=== PATIENT | female | born 1960 | race Caucasian/White ===

== ENCOUNTER 2016-10-31 06:09 | Inpatient (IN) | payer BC ==
--- NOTE | 2016-10-25 14:08 | HP ---
Admitting History and Physical - Primary Care Physician PCP: william - Admission Chief Complaint: left breast cancer History of Present Illness: 56 yo female noted to have left breast calcifications on mammogram. Left stereo bx of this area done 09/03/2016 was c/w DCIS. MRI done 10/14/2016 was c/w fairly extensive enhancement again in the lower inner aspect of the left breast extending over at least 5 cm. Patient is now opting for left mastectomy, snbx, lympho, possible andx with SCOTT reconstruction. History Source: Patient Limitations to Obtaining History: No Limitations - Past Medical History Cardiovascular: Yes: Hyperlipdemia Endocrine: Yes: Other (vitamin D Deficiency) - Past Surgical History Past Surgical History: Yes: Additional Past Surgical History: removal of ectopic - Smoking History Smoking history: Former smoker Have you smoked in the past 12 months: No - Alcohol/Substance Use Hx Alcohol Use: Yes (social) Home Medications - Allergies Allergies/Adverse Reactions: Allergies Allergy/AdvReac Type Severity Reaction Status Date / Time No Known Allergies Allergy Unverified 11/27/12 10:30 - Home Medications Home Medications (free text): Crestor. Vitamin D3 Family Disease History - Family Disease History Family Disease History: CA: Grandparent (paternal GM 70's breast ca), Sister ( bilateral breast cancer age 53) Review of Systems - Review of Systems Constitutional: reports: No Symptoms Cardiovascular: reports: No Symptoms Gastrointestinal: reports: No Symptoms Physical Examination Constitutional: Yes: Well Nourished Breast(s): Yes: Other (Left breast bx changes noted in the lower inner aspect. No suspicious masses or adenopathy noted bilaterally.) Problem List - Problems (1) Ductal carcinoma of left breast Code(s): C50.912 - MALIGNANT NEOPLASM OF UNSPECIFIED SITE OF LEFT FEMALE BREAST Assessment/Plan Plan left mastectomy, snbx, poss andx with lymphoscintogram and SCOTT reconstruction.
[2016-10-30 12:59] VITALS: BMI 27.5
[2016-10-31] MEDS ORDERED: PAPAVERINE HCL 30 MG/1 ML 10 ML VIAL NR ONE (07:02)
[2016-10-31] MEDS ORDERED: ISOSULFAN BLUE 10 MG/ML VIAL SQ ONE (07:02)
[2016-10-31] MEDS ORDERED: DEXAMETHASONE SOD PHOSPHATE/PF 10 MG/ML SDV ONE (07:02)
[2016-10-31] MEDS ORDERED: HEPARIN NA (PORCINE) 5,000 UNITS/ML 1ML VIAL ONE (07:03)
[2016-10-31] MEDS ORDERED: DESFLURANE GAS 240 ML BOTTLE IH ONE (07:55)
[2016-10-31] MEDS ORDERED: ceFAZolin SODIUM 1 GM VIAL IVPB ONE ×2 (08:30→08:44)
[2016-10-31] MEDS ORDERED: HEPARIN NA (PORCINE) 5,000 UNITS/ML 1ML VIAL SQ ONE (08:33)
[2016-10-31] MEDS ORDERED: [UNRECOGNIZED DRUG - OTHER] NR ONE (09:30)
[2016-10-31] MEDS ORDERED: BUPIVACAINE HCL/PF 0.25% (2.5MG/ML) 10 ML VIAL ONE (11:28)
[2016-10-31] MEDS ORDERED: ONDANSETRON 4 MG/2 ML VIAL IVPUSH PRN ×2 (14:11→14:12)
[2016-10-31] MEDS ORDERED: HYDROmorphone HCL CARPU-JECT 1 MG/1 ML DISP.SYRIN IVPUSH PRN (14:11)
[2016-10-31] MEDS ORDERED: PROMETHAZINE HCL 25 MG/1 ML VIAL IVPB PRN (14:12)
[2016-10-31] MEDS ORDERED: DEXAMETHASONE SOD PHOSPHATE 4 MG/1 ML VIAL IVPUSH PRN (14:12)
[2016-10-31] MEDS ORDERED: HYDROmorphone HCL CARPU-JECT 2 MG/1 ML DISP.SYRIN ONE (14:13)
[2016-10-31] MEDS ORDERED: oxyCODONE HCL 5 MG TABLET PO PRN (14:19)
[2016-10-31] MEDS ORDERED: diazePAM 5 MG TABLET PO PRN (14:19)
--- NOTE | 2016-10-31 14:42 | OP ---
Operative Note - Note: Operative Date: 10/31/16 Pre-Operative Diagnosis: left breast CA Operation: Left breast mastectomy with sentinel node bx and Brianna reconstruction Findings: same Implants: none Post-Operative Diagnosis: Same as Pre-op Surgeon: Omkar Belcher Calender Worker Helper: Breanna Quispe Anesthesia: General Specimens Removed: Left breast Estimated Blood Loss (mls): 200 Drains & Tubes with Location: 15 Tay two to abdomen, and one to left breast.
[2016-10-31] MEDS ORDERED: ASPIRIN 325 MG ENTERIC COATED TABLET (FP) PO ONE (14:45)
[2016-10-31] MEDS: DEXTROSE 5%-0.45% SALINE 1,000 ML IV SCH (14:55)
[2016-10-31] MEDS: HYDROmorphone *PCA* 10MG/50ML DISP.SYRIN PCA SCH (14:55)
[2016-10-31] MEDS ORDERED: CEFAZOLIN 1 GM/D5W 50 ML IVPB SCH ×2 (15:00→21:30)
[2016-10-31] MEDS ORDERED: ceFAZolin SODIUM 1 GM VIAL ONE (15:15)
--- NOTE | 2016-10-31 20:24 | CONSULT ---
Consult Consult Specialty:: Pulmonary/ Critical Care Referred by:: Garrett Dumont Reason for Consultation:: s/p mastectomy - History of Present Illness Chief Complaint: s/p mastectomy History of Present Illness: HPI: 56 y/o woman who was found to have left breast calcifications on mammogram. She underwent biopsy of this area on 09/03/16 and it was consistent with DCIS. She had MRI on 10/14/16 which showed fairly extensive enhancement in lower inner aspect of left breast extending over at least 5cm. Pt presented for L breast mastectomy, sentinel node biopsy and and SCOTT reconstruction on 10/31/16 under general anesthesia. Estimated blood loss 200mls and she had 2 blakes to abdomen and one to left breast. She is now admitted to the ICU for post-op monitoring. Current Medications Aspirin (Asa -) 325 mg PO DAILY RUSTAM Dexamethasone Sodium Phosphate (Decadron Injection -) 4 mg IVPUSH ONCE PRN PRN Reason: NAUSEA AND/OR VOMITING Diazepam (Valium -) 5 mg PO Q8H PRN PRN Reason: PAIN LEVEL 6-10 Diphenhydramine HCl (Benadryl Injection -) 12.5 mg IVPUSH ONCE PRN PRN Reason: FOR ITCHING Docusate Sodium (Colace -) 100 mg PO BID RUSTAM Last Admin: 10/31/16 21:30 Dose: 100 mg Enoxaparin Sodium (Lovenox -) 40 mg SQ DAILY RUSTAM Hydromorphone HCl (Dilaudid Injection -) 1 mg IVPUSH [id number] PRN PRN Reason: PAIN Stop: 11/03/16 14:12 Last Admin: 10/31/16 14:14 Dose: 1 mg Hydromorphone HCl (Dilaudid Regional Sales Consultant -) 0 mg PROGRAM DIRECTOR/AIR PERSONALITY PROGRAM DIRECTOR/AIR PERSONALITY RUSTAM PRN Reason: Protocol Stop: 11/07/16 14:12 Last Admin: 10/31/16 14:55 Dose: 10 mg Dextrose/Sodium Chloride (D5-1/2ns -) 1,000 mls @ 125 mls/hr IV ASDIR RUSTAM Last Admin: 10/31/16 14:55 Dose: 590 mls Dextrose/Sodium Chloride (D5-1/2ns -) 1,000 mls @ 75 mls/hr IV ASDIR RUSTAM Cefazolin Sodium (Ancef 1gm Ivpb (Pre-Docked)) 50 mls @ 100 mls/hr IVPB Q6H-IV RUSTAM Last Admin: 10/31/16 21:33 Dose: 100 mls/hr Ondansetron HCl (Zofran Injection) 4 mg IVPUSH Q4H PRN PRN Reason: NAUSEA AND/OR VOMITING Stop: 11/01/16 02:13 Oxycodone HCl (Roxicodone -) 10 mg PO Q4H PRN PRN Reason: PAIN Oxycodone HCl (Roxicodone -) 5 mg PO Q4H PRN PRN Reason: PAIN Promethazine HCl (Phenergan Injection -) 12.5 mg IVPB Q6H PRN PRN Reason: NAUSEA AND/OR VOMITING Rosuvastatin Calcium (Crestor -) 20 mg PO [facility] - History Source History Provided By: Patient, Medical Record Limitations to Obtaining History: No Limitations - Past Medical History Cardio/Vascular: Yes: Hyperlipdemia Reproductive: Yes: Ectopic ...LMP: 10/07/16 Endocrine: Yes: Other (vitamin D Deficiency) - Past Surgical History Past Surgical History: Yes: - Alcohol/Substance Use Hx Alcohol Use: Yes (social) - Smoking History Smoking history: Former smoker Have you smoked in the past 12 months: No Home Medications - Allergies Allergies/Adverse Reactions: Allergies Allergy/AdvReac Type Severity Reaction Status Date / Time No Known Allergies Allergy Unverified 11/27/12 10:30 - Home Medications Home Medications: Ambulatory Orders Cholecalciferol (Vitamin D3) [Vitamin D3] 5,000 unit PO 10/30/16 Rosuvastatin Calcium [Crestor] 20 mg PO 10/30/16 Family Disease History - Family Disease History Family Disease History: CA: Grandparent (paternal GM 70's breast ca), Sister ( bilateral breast cancer age 53) Review of Systems - Review of Systems Breasts: reports: See HPI Physical Exam Vital Signs: Vital Signs Temperature 99.2 F 10/31/16 20:00 Pulse Rate 96 H 10/31/16 20:00 Respiratory Rate 12 10/31/16 20:00 Blood Pressure 117/61 10/31/16 20:00 O2 Sat by Pulse Oximetry (%) 100 10/31/16 20:00 Constitutional: Yes: Well Nourished Eyes: Yes: WNL, Conjunctiva Clear HENT: Yes: Normocephalic Neck: Yes: Supple Cardiovascular: Yes: Regular Rate and Rhythm, S1, S2 Respiratory: Yes: CTA Bilaterally Gastrointestinal: Yes: Soft, Hypoactive Bowel Sounds. No: Tenderness Breast(s): Yes: Other (L breast dressing c/d/i, drains with sero-sanguinous drainage) Extremities: Yes: WNL Edema: No Peripheral Pulses WNL: Yes (2+) Integumentary: Yes: WNL Wound/Incision: Yes: Clean/Dry, Dressing Dry and Intact Neurological: Yes: WNL, Cran Nerves II-XII Intact ...Motor Strength: WNL Problem List - Problems (1) Ductal carcinoma of left breast Code(s): C50.912 - MALIGNANT NEOPLASM OF UNSPECIFIED SITE OF LEFT FEMALE BREAST Assessment/Plan Assessment/Plan: 56 y/o woman with DCIS now s/p L breast mastectomy, sentinel node biopsy and SCOTT reconstruction, admitted to ICU for post-op monitoring. -ICU observation post-op -PROGRAM DIRECTOR/AIR PERSONALITY for pain control -cefazolin for surgical ppx -monitor drainage - notify surgical team for brisk output -doppler to L breast - notify surgical team for any change -monitor flap for any discoloration/ change - notify surgery as needed -jeffry janellegger -resume clear diet in am, NPO for now -resume crestor, bowel regimen when able to take PO's -DVT ppx - lovenox
[2016-10-31] MEDS: DOCUSATE SODIUM 100 MG CAPSULE (FP) PO SCH (21:30)
[2016-10-31] MEDS: CEFAZOLIN (PRE-DOCKED) 50 ML IVPB SCH (21:33)
[2016-10-31] MEDS: ROSUVASTATIN CA 20 MG TABLET (FP) PO SCH (22:00)
[2016-11-01] MEDS: CEFAZOLIN (PRE-DOCKED) 50 ML IVPB SCH ×4 (02:00→21:30)
[2016-11-01] MEDS ORDERED: DEXTROSE 5%-0.45% SALINE 1,000 ML IV SCH (08:00)
--- NOTE | 2016-11-01 09:09 | PN ---
Progress Note (short form) - Note Progress Note: Anesthesia/Pain Pt seen and examined S:alert and awake, mild discomfort and uses FLOWER GRADER O: Vital Signs Temperature 99.2 F 10/31/16 20:00 Pulse Rate 87 11/01/16 08:00 Respiratory Rate 12 11/01/16 08:00 Blood Pressure 105/60 11/01/16 08:00 O2 Sat by Pulse Oximetry (%) 95 10/31/16 21:00 A/P: Current Active Problems Ductal carcinoma of left breast (Acute) s/p SCOTT procedure Doing well post op Continue with IV FLOWER GRADER Arnulfo Glass MD
[2016-11-01] MEDS: DOCUSATE SODIUM 100 MG CAPSULE (FP) PO SCH ×2 (09:40→21:50)
--- NOTE | 2016-11-01 09:40 | PN ---
Progress Note, Physician Chief Complaint: S/P left mastectomy with SCOTT POD #1 History of Present Illness: Patient seen this am and is comfortable without any distress. She reports good pain control but has some pruritis. - Current Medication List Current Medications: Active Medications Aspirin (Asa -) 325 mg PO DAILY [facility] Dexamethasone Sodium Phosphate (Decadron Injection -) 4 mg IVPUSH ONCE PRN PRN Reason: NAUSEA AND/OR VOMITING Diazepam (Valium -) 5 mg PO Q8H PRN PRN Reason: PAIN LEVEL 6-10 Diphenhydramine HCl (Benadryl Injection -) 12.5 mg IVPUSH ONCE PRN PRN Reason: FOR ITCHING Last Admin: 11/01/16 01:15 Dose: 12.5 mg Docusate Sodium (Colace -) 100 mg PO BID [facility] Last Admin: 10/31/16 21:30 Dose: 100 mg Enoxaparin Sodium (Lovenox -) 40 mg SQ DAILY [facility] Hydromorphone HCl (Dilaudid Injection -) 1 mg IVPUSH [id number] PRN PRN Reason: PAIN Stop: 11/03/16 14:12 Last Admin: 10/31/16 14:14 Dose: 1 mg Hydromorphone HCl (Dilaudid Janitor Custodian -) 0 mg OUTSIDE SALESMAN OUTSIDE SALESMAN RUSTAM PRN Reason: Protocol Stop: 11/07/16 14:12 Last Admin: 10/31/16 14:55 Dose: 10 mg Dextrose/Sodium Chloride (D5-1/2ns -) 1,000 mls @ 125 mls/hr IV ASDIR RUSTAM Last Admin: 10/31/16 14:55 Dose: 590 mls Dextrose/Sodium Chloride (D5-1/2ns -) 1,000 mls @ 75 mls/hr IV ASDIR [facility] Cefazolin Sodium (Ancef 1gm Ivpb (Pre-Docked)) 50 mls @ 100 mls/hr IVPB Q6H-IV [facility]UST[facility] Last Admin: 11/01/16 02:00 Dose: 100 mls/hr Oxycodone HCl (Roxicodone -) 10 mg PO Q4H PRN PRN Reason: PAIN Oxycodone HCl (Roxicodone -) 5 mg PO Q4H PRN PRN Reason: PAIN Promethazine HCl (Phenergan Injection -) 12.5 mg IVPB Q6H PRN PRN Reason: NAUSEA AND/OR VOMITING Rosuvastatin Calcium (Crestor -) 20 mg PO HS RUSTAM Last Admin: 10/31/16 22:00 Dose: 20 mg - Objective Vital Signs: Vital Signs Temperature 99.2 F 10/31/16 20:00 Pulse Rate 87 11/01/16 08:00 Respiratory Rate 12 11/01/16 08:00 Blood Pressure 105/60 11/01/16 08:00 O2 Sat by Pulse Oximetry (%) 95 10/31/16 21:00 Constitutional: Yes: Well Nourished, Calm Breast(s): Yes: Left (Left breast flaps with good color and minimal ecchymosis. Minimal swelling noted. JPs with serosanginous discharge. Good strong pulse noted on doppler. Incision clean without discharge or erythema.) Problem List - Problems (1) Ductal carcinoma of left breast Code(s): C50.912 - MALIGNANT NEOPLASM OF UNSPECIFIED SITE OF LEFT FEMALE BREAST Assessment/Plan Plan: Continue current tx regime. Plan as per plastic surgery. Will discuss case with Dr. Dumont
[2016-11-01] MEDS: DEXTROSE 5%-0.45% SALINE 1,000 ML IV SCH (09:42)
[2016-11-01] MEDS ORDERED: ENOXAPARIN NA (PORCINE) 40 MG/0.4 ML DISP.SYRIN SQ SCH (10:00)
[2016-11-01] MEDS ORDERED: ASPIRIN 325 MG TABLET PO SCH (10:00)
[2016-11-01 10:12] LABS: BASOPHIL 0.5 % (0-2.0); EOSINOPHIL 0.3 % (0-4.5); MCH 32.5 pg (25.7-33.7); MCHC 33.9 g/dl (32.0-36.0); MEAN CELL VOLUME 95.9 fl (80-96); MEAN PLT VOLUME 8.7 fl (7.5-11.1); NEUTROPHILS 75.6 % (42.8-82.8); PLATELET COUNT 179 K/MM3 (134-434); RDW 13.3 % (11.6-15.6); WHITE BLOOD COUNT 9.1 K/mm3 (4.0-10.0)
[2016-11-01 10:56] LABS: ALBUMIN 2.7 g/dl (3.4-5.0); ALK PHOS 54 U/L (45-117); ANION GAP 6 (8-16); BILIRUBIN,TOTAL 0.7 mg/dL (0.2-1.0); CALCIUM 7.8 mg/dL (8.5-10.1); CO2 28 mmol/L (21-32); COCKROFT - GAULT 132.7785; CREATININE 0.6 mg/dL (0.55-1.02); GLUCOSE,RANDOM 111 mg/dL (74-106); SGOT/AST 20 U/L (15-37); SGPT/ALT 22 U/L (12-78); TOT PROT 5.3 g/dl (6.4-8.2)
--- NOTE | 2016-11-01 12:06 | PN ---
Teaching Attending Note Name of Resident: Kathryn Price ATTENDING PHYSICIAN STATEMENT I saw and evaluated the patient. I reviewed the resident's note and discussed the case with the resident. I agree with the resident's findings and plan as documented. SUBJECTIVE: Pt seen and examined in the ICU. Pain controlled with current regimen. Denies shortness of breath or chest pain. No fevers or chills. c/o itchiness. OBJECTIVE: Last Vital Signs Temp Pulse Resp BP Pulse Ox 99.2 F 87 12 105/60 95 10/31/16 20:00 11/01/16 10:00 11/01/16 10:00 11/01/16 10:00 11/01/16 09:00 Intake & Output 10/29/16 10/30/16 10/31/16 11/01/16 23:59 23:59 23:59 23:59 Intake Total 3790 Output Total 1555 45 Balance 2235 -45 Weight 173 lb 181 lb 7 oz Gen: NAD at rest Heart: RRR Chest: bilateral NIKOLAS drains with serosanguinous drainage Lung: decreased breath sounds at the bases Abd: soft, nontender Ext: no edema CBC, BMP 11/01/16 10:04 11/01/16 10:40 Active Medications Aspirin (Asa -) 325 mg PO DAILY [facility] Dexamethasone Sodium Phosphate (Decadron Injection -) 4 mg IVPUSH ONCE PRN PRN Reason: NAUSEA AND/OR VOMITING Diazepam (Valium -) 5 mg PO Q8H PRN PRN Reason: PAIN LEVEL 6-10 Diphenhydramine HCl (Benadryl Injection -) 25 mg IVPUSH Q4H PRN PRN Reason: FOR ITCHING Docusate Sodium (Colace -) 100 mg PO BID [facility] Last Admin: 11/01/16 09:40 Dose: 100 mg Enoxaparin Sodium (Lovenox -) 40 mg SQ DAILY [facility]UST[facility] Hydromorphone HCl (Dilaudid Injection -) 1 mg IVPUSH [id number] PRN PRN Reason: PAIN Stop: 11/03/16 14:12 Last Admin: 10/31/16 14:14 Dose: 1 mg Hydromorphone HCl (Dilaudid Weigher Production -) 0 mg REHABILITATION AIDE REHABILITATION AIDE RUSTAM PRN Reason: Protocol Stop: 11/07/16 14:12 Last Admin: 10/31/16 14:55 Dose: 10 mg Dextrose/Sodium Chloride (D5-1/2ns -) 1,000 mls @ 125 mls/hr IV ASDIR RUSTAM Last Admin: 11/01/16 09:42 Dose: 125 mls/hr Dextrose/Sodium Chloride (D5-1/2ns -) 1,000 mls @ 75 mls/hr IV ASDIR RUSTAM Last Admin: 11/01/16 09:43 Dose: 75 mls/hr Cefazolin Sodium (Ancef 1gm Ivpb (Pre-Docked)) 50 mls @ 100 mls/hr IVPB Q6H-IV [facility]USTAM Last Admin: 11/01/16 09:41 Dose: 100 mls/hr Oxycodone HCl (Roxicodone -) 10 mg PO Q4H PRN PRN Reason: PAIN Oxycodone HCl (Roxicodone -) 5 mg PO Q4H PRN PRN Reason: PAIN Promethazine HCl (Phenergan Injection -) 12.5 mg IVPB Q6H PRN PRN Reason: NAUSEA AND/OR VOMITING Rosuvastatin Calcium (Crestor -) 20 mg PO [facility] Last Admin: 10/31/16 22:00 Dose: 20 mg ASSESSMENT AND PLAN: Left Breast DCIS s/p L mastectomy/sentinel node biopsy/SCOTT reconstruction - pain control - incentive spirometry - benadryl for pruritis - monitor drain output - monitor flaps - PO as tolerated - DVT prophylaxis
[2016-11-01] MEDS: HYDROmorphone *PCA* 10MG/50ML DISP.SYRIN PCA SCH (14:00)
[2016-11-01] MEDS ORDERED: oxyCODONE HCL 5 MG TABLET PO PRN (14:19)
--- NOTE | 2016-11-01 17:10 | PN ---
Physical Exam: SUBJECTIVE: Patient seen and examined. She is lying in bed, complaining of chest pain and abdominal pain. She denies SOB, palpitations. OBJECTIVE: Vital Signs Period Temp Pulse Resp BP Sys/Alfaro Pulse Ox Last 24 Hr 98.4 F-99.3 F 84-99 9-15 95-126/55-72 95-100 GENERAL: The patient is awake, alert, and fully oriented, in no acute distress. HEAD: Normal with no signs of trauma. EYES: extraocular movements intact, sclera anicteric, conjunctiva clear. ENT: oropharynx clear without exudates, moist mucous membranes. NECK: Trachea midline, full range of motion, supple. LUNGS: Breath sounds equal, clear to auscultation bilaterally, no wheezes, no crackles, no accessory muscle use. HEART: Regular rate and rhythm, S1, S2 without murmur, rub or gallop. ABDOMEN: Soft, tender in alkl 4q, nondistended, normoactive bowel sounds, no guarding, no rebound, no hepatosplenomegaly, no masses. EXTREMITIES: 2+ pulses, warm, no edema. NEUROLOGICAL: No facial asymmetry. Normal speech, gait not observed. PSYCH: Normal mood, normal affect. SKIN: Warm, dry, normal turgor, no rashes, long horizontal scar well healing in lower abdomen, left breast: well healing scar post mastectomy, 3 drain on left side draining. Laboratory Results - last 24 hr 11/01/16 11/01/16 10:04 10:40 WBC 9.1 RBC 3.38 L Hgb 11.0 Hct 32.4 MCV 95.9 MCHC 33.9 RDW 13.3 Plt Count 179 MPV 8.7 Neutrophils % 75.6 Lymphocytes % 16.2 Monocytes % 7.4 Eosinophils % 0.3 Basophils % 0.5 Sodium 138 Potassium 3.7 Chloride 104 Carbon Dioxide 28 Anion Gap 6 L BUN 6 L Creatinine 0.6 Creat Clearance w eGFR > 60 Random Glucose 111 H Calcium 7.8 L Total Bilirubin 0.7 AST 20 ALT 22 Alkaline Phosphatase 54 Total Protein 5.3 L Albumin 2.7 L Active Medications Generic Name Dose Route Start Last Admin Trade Name Freq PRN Reason Stop Dose Admin Aspirin 325 mg 11/01/16 10:00 Asa - PO DAILY RUSTAM Dexamethasone Sodium Phosphate 4 mg 10/31/16 14:12 Decadron Injection - IVPUSH ONCE PRN NAUSEA AND/OR VOMITING Diazepam 5 mg 10/31/16 14:19 Valium - PO Q8H PRN PAIN LEVEL 6-10 Diphenhydramine HCl 25 mg 11/01/16 11:17 Benadryl Injection - IVPUSH Q4H PRN FOR ITCHING Docusate Sodium 100 mg 10/31/16 22:00 11/01/16 09:40 Colace - PO 100 mg BID RUSTAM Administration Enoxaparin Sodium 40 mg 11/01/16 10:00 Lovenox - SQ DAILY RUSTAM Hydromorphone HCl 1 mg 10/31/16 14:11 10/31/16 14:14 Dilaudid Injection - IVPUSH 11/03/16 14:12 1 mg [id number] PRN Administration PAIN Hydromorphone HCl 0 mg 10/31/16 14:15 10/31/16 14:55 Dilaudid Career Technical Supervisor - BENDING PRESS OPERATOR 11/07/16 14:12 10 mg BENDING PRESS OPERATOR RUSTAM Administration Protocol Dextrose/Sodium Chloride 1,000 mls @ 125 mls/hr 10/31/16 14:30 11/01/16 09:42 D5-1/2ns - IV 125 mls/hr ASDIR RUSTAM Administration Dextrose/Sodium Chloride 1,000 mls @ 75 mls/hr 11/01/16 08:00 11/01/16 09:43 D5-1/2ns - IV 75 mls/hr ASDIR RUSTAM Administration Cefazolin Sodium 50 mls @ 100 mls/hr 10/31/16 21:30 11/01/16 15:50 Ancef 1gm Ivpb (Pre-Docked) IVPB 100 mls/hr Q6H-IV RUSTAM Administration Oxycodone HCl 10 mg 10/31/16 14:19 Roxicodone - PO Q4H PRN PAIN Oxycodone HCl 5 mg 11/01/16 14:19 Roxicodone - PO Q4H PRN PAIN Promethazine HCl 12.5 mg 10/31/16 14:12 Phenergan Injection - IVPB Q6H PRN NAUSEA AND/OR VOMITING Rosuvastatin Calcium 20 mg 10/31/16 22:00 10/31/16 22:00 Crestor - PO 20 mg HS RUSTAM Administration ASSESSMENT/PLAN: Assessment/Plan: 56 y/o woman with DCIS s/p L breast mastectomy, sentinel node biopsy and SCOTT reconstruction, admitted to ICU for post-op monitoring. S/p left breast mastectomy POD# 1 -ICU observation post-op -BENDING PRESS OPERATOR for pain control -f/u surgical recommendations: monitor drainage, doppler to L breast -monitor flap for any discoloration/ change -cefazolin for surgical ppx -advanced to clear liquid diet -cont Promethazine HCl for nausea -cont Decadron HDL; -cont Crestor DVT ppx lovenox 40 mg qd Disposition: ICU monitoring Problem List - Problems (1) Ductal carcinoma of left breast Code(s): C50.912 - MALIGNANT NEOPLASM OF UNSPECIFIED SITE OF LEFT FEMALE BREAST Visit type - Emergency Visit Emergency Visit: Yes ED Registration Date: 10/31/16 Care time: The patient presented to the Emergency Department on the above date and was hospitalized for further evaluation of their emergent condition. - New Patient This patient is new to me today: Yes Date on this admission: 11/01/16 - Critical Care Critical Care patient: Yes Total Critical Care Time (in minutes): 40 Critical Care Statement: The care of this patient involved high complexity decision making to prevent further life threatening deterioration of the patient 's condition and/or to evalute & treat vital organ system(s) failure or risk of failure.
--- NOTE | 2016-11-01 18:41 | OP ---
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 PROCEDURE: Left breast total mastectomy with left axillary sentinel lymph node biopsy and deep flap reconstruction. ANESTHESIA: General endotracheal anesthesia. PRIMARY SURGEON: Anai Reed M.D. TOWER OBSERVER: Shweta Muñoz PRIMARY SURGEON: For left deep flap reconstruction, Anai Belcher M.D. TOWER OBSERVER: Gerardo Young M.D., and JESSIE Carlos. COMPLICATIONS: There were no complications. Briefly, the patient is a 56-year-old G3, P2, perimenopausal white female with [place], [place], and [place] descent. She has a history of breast cancer with her sister who had breast cancer at age 53 and a paternal cancer who had breast cancer at age 35. The patient underwent a mammography in July 2016 showing extensive calcification to the upper inner aspect of the left breast. Stereotactic biopsies showed high grade DCIS which was ER/LA positive with necrosis. MRI showed enhancement in this upper aspect of the left breast measuring at least 5 cm. The patient was told of the need for a mastectomy, was seen by plastic surgery, and chose to have a deep flap reconstruction. The patient did undergo genetic testing with genetic panel testing which turned out to be negative other than a . The patient was brought in for the procedure through same day surgery on October 31, 2016, at [facility]. She first underwent lymphoscintigraphy in nuclear medicine and was brought up to the holding area. In the holding area, site verification was made and informed consent was made. She was marked preoperatively by the plastic surgeon. She was brought into the operating room and laid on the OR table in the supine position. Venodynes were placed on the lower extremities prior to induction. She received 2 g of Ancef prior to the incision. She had a Gibbs placed at the beginning of the case, and both breasts as well as the abdomen was sterilely prepped and draped in the usual sterile fashion. Plastic surgeon used the Doppler to michelle out the vessels in the anterior abdominal wall. Then 3 mL of Lymphazurin blue were injected intradermally, periareolar region of the left nipple areolar complex. An incision was made just below the of the left axilla and dissection was undertaken, and blue lymphatics were seen coursing through a blue hot lymph node which had a 10-second gamma count of 11,074 in the level 1 region of the left axilla. A second hot node was found in a level 2 region of the left axilla with a 10-second gamma count of 1718. Background counts after removing these 2 nodes was 167 . No other blue or hot nodes were found. Frozen of these 2 nodes came back negative. Hemostasis was achieved. At this point, the mastectomy was begun through a circumareolar incision encompassing the entire nipple areolar complex but sparing the skin of the breast. The plastic surgeon began harvesting the deep flap reconstruction from the abdominal wall at the same time. Incision was made around the periareolar region of the left breast and skin flaps were raised superiorly to the level of the clavicle, medially to the level of the sternum, laterally to the level of the latissimus, and inferiorly to the level of the inframammary fold. The breast was taken out off the pectoralis major muscle using electrocautery from medial to lateral, completely removed intact. It was oriented with a long lateral, short superior suture and weighed to allow for appropriate cosmetic result. Specimen radiographs showed removal of the clip and all the calcifications in question. Two separate superior anterior margins were taken on the medial and lateral aspects and sent separately to pathology with suture margin on biopsy cavity side of all specimens. Skin flaps were trimmed for good cosmetic result, and hemostasis was achieved. The wound was copiously irrigated with warm sterile saline. At this point in the case, Dr. Belcher and Dr. Young became the primary surgeons to perform the left breast deep flap reconstruction which they will dictate separately. All wounds will be closed by plastic surgery. She will have drains placed in both the breasts and abdominal wounds. The patient will be admitted postoperatively for pain management and wound management. She will be getting Doppler checks of the flaps every hour, and will be admitted to the ICU for nursing care. All sponge, needle counts are correct at this point in the case, and estimated blood loss was about 50 mL. She was hemodynamically stable. ANAI REED M.D. [id number]
--- NOTE | 2016-11-01 19:24 | PN ---
Progress Note (short form) - Note Progress Note: Progress Note: Patient is POD #1 s/p bilateral breast reconstruction with SCOTT flap immediately after Left mastectomy. Patient was seen today with only complaint of itching. She has been recieving benadryl. Denies headache, chills, nausea/ vomiting/diarrhea, or any urinary sxs. Patient has been bedrest and has a gonzalez. She has been having the jeffry hugger on her breast. Pain is well control with MACHINE TAPER. She is tolerating fluids and Jello. On PE, she is A&O x 3. Interactive and cooperative. Left breast with appropriate swelling. Incision is covered by dermabond. Good cap refill on the flap and it is warm to touch, and doppler has great sound. NIKOLAS drains holding suction well. Abdomen with appropriate swelling. Incision is covered with dermabond. no surrounding erythema. A/P: POD #1 s/p bilateral breast reconstruction with SCOTT flap immediately after left mastectomy. Diet: Advance to regular for breakfast. No caffeine, no chocolate. cont with anticoagulation OOB to chair as toelrated. will keep gonzalez until tomorrow am and d/c then d/c cloth coverer in AM. tolerating pain well. Doppler: continue with q1hr for now, change to q2hr at 8am Will continue to monitor her closely. patient states she does not need VNS but we plan on d/c her friday pending on her recovery.
[2016-11-01] MEDS ORDERED: ACETAMINOPHEN 325 MG TABLET (FP) PO PRN (21:46)
[2016-11-01] MEDS: ROSUVASTATIN CA 20 MG TABLET (FP) PO SCH (22:00)
[2016-11-01] MEDS ORDERED: PT OWN MED DRAWER 7, Y5N ONE (22:01)
[2016-11-02] MEDS: CEFAZOLIN (PRE-DOCKED) 50 ML IVPB SCH ×4 (03:23→21:24)
[2016-11-02] MEDS: HYDROmorphone *PCA* 10MG/50ML DISP.SYRIN PCA SCH (05:45)
[2016-11-02 06:14] LABS: MCH 32.7 pg (25.7-33.7); MEAN CELL VOLUME 96.3 fl (80-96); PLATELET COUNT 186 K/MM3 (134-434); RDW 13.1 % (11.6-15.6); WHITE BLOOD COUNT 10.1 K/mm3 (4.0-10.0)
[2016-11-02 06:54] LABS: ALBUMIN 2.6 g/dl (3.4-5.0); ANION GAP 9 (8-16); CALCIUM 8.2 mg/dL (8.5-10.1); CO2 27 mmol/L (21-32); COCKROFT - GAULT 139.2555; CREATININE 0.6 mg/dL (0.55-1.02); GLUCOSE,RANDOM 102 mg/dL (74-106); SGOT/AST 15 U/L (15-37); SGPT/ALT 19 U/L (12-78)
[2016-11-02 06:56] LABS: ALK PHOS 63 U/L (45-117); BILIRUBIN,TOTAL 0.7 mg/dL (0.2-1.0); TOT PROT 5.5 g/dl (6.4-8.2)
[2016-11-02] MEDS ORDERED: PROMETHAZINE HCL 25 MG/1 ML VIAL IVPB PRN (09:11)
[2016-11-02] MEDS ORDERED: diazePAM 5 MG TABLET PO PRN (09:11)
[2016-11-02] MEDS ORDERED: oxyCODONE HCL 5 MG TABLET PO PRN ×2 (09:11)
[2016-11-02] MEDS ORDERED: ACETAMINOPHEN 325 MG TABLET (FP) PO PRN (09:11)
--- NOTE | 2016-11-02 09:21 | PN ---
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 - Current Medication List Current Medications: Active Medications Acetaminophen (Tylenol -) 650 mg PO Q4H PRN PRN Reason: FEVER OR PAIN Last Admin: 11/01/16 22:00 Dose: 650 mg Aspirin (Asa -) 325 mg PO DAILY [facility] Dexamethasone Sodium Phosphate (Decadron Injection -) 4 mg IVPUSH ONCE PRN PRN Reason: NAUSEA AND/OR VOMITING Diazepam (Valium -) 5 mg PO Q8H PRN PRN Reason: PAIN LEVEL 6-10 Diphenhydramine HCl (Benadryl Injection -) 25 mg IVPUSH Q4H PRN PRN Reason: FOR ITCHING Last Admin: 11/01/16 21:50 Dose: 25 mg Docusate Sodium (Colace -) 100 mg PO BID [facility] Last Admin: 11/01/16 21:50 Dose: 100 mg Enoxaparin Sodium (Lovenox -) 40 mg SQ DAILY [facility] Hydromorphone HCl (Dilaudid Injection -) 1 mg IVPUSH [id number] PRN PRN Reason: PAIN Stop: 11/03/16 14:12 Last Admin: 10/31/16 14:14 Dose: 1 mg Cefazolin Sodium (Ancef 1gm Ivpb (Pre-Docked)) 50 mls @ 100 mls/hr IVPB Q6H-IV RUSTAM Last Admin: 11/02/16 03:23 Dose: 100 mls/hr Oxycodone HCl (Roxicodone -) 10 mg PO Q4H PRN PRN Reason: PAIN Oxycodone HCl (Roxicodone -) 5 mg PO Q4H PRN PRN Reason: PAIN Promethazine HCl (Phenergan Injection -) 12.5 mg IVPB Q6H PRN PRN Reason: NAUSEA AND/OR VOMITING Rosuvastatin Calcium (Crestor -) 20 mg PO HS [facility] Last Admin: 11/01/16 22:00 Dose: 20 mg - Objective Vital Signs: Vital Signs Temperature 100.2 F H 11/02/16 06:00 Pulse Rate 87 11/02/16 06:00 Respiratory Rate 16 11/02/16 06:00 Blood Pressure 116/67 11/02/16 06:00 O2 Sat by Pulse Oximetry (%) 95 11/01/16 21:00 Constitutional: Yes: Well Nourished, No Distress, Calm Eyes: Yes: WNL HENT: Yes: WNL Neck: Yes: WNL Cardiovascular: Yes: Regular Rate and Rhythm Respiratory: Yes: Regular, CTA Bilaterally Gastrointestinal: Yes: Normal Bowel Sounds, Soft ...Rectal Exam: Yes: Deferred Genitourinary: Yes: WNL Breast(s): Yes: Other Musculoskeletal: Yes: WNL Extremities: Yes: WNL (SCOTT flaps warm and viable and skin flaps viable and intact. Excellent dopplerable signals. Drains functioning well.) Integumentary: Yes: WNL Wound/Incision: Yes: Clean/Dry, Well Approximated Neurological: Yes: Alert, Oriented Psychiatric: Yes: WNL Labs: CBC, BMP 11/02/16 05:20 11/02/16 05:20 Problem List - Problems (1) Ductal carcinoma of left breast Assessment/Plan: The patient is POD#2 s/p left total mastectomy and SCOTT flap reconstruction. Flaps warm and viable with dopplerable signals. She is OOB and Gibbs removed this AM. Tolerating diet with good pain control. Low grade fever. H/H stable. Drains functioning well. She is stable for transfer to floor today. Continue IV antibiotics. OOB ambulating. Oral pain medications. Probable discharge home tomorrow. Continue lovenox and ASA. Code(s): C50.912 - MALIGNANT NEOPLASM OF UNSPECIFIED SITE OF LEFT FEMALE BREAST
--- NOTE | 2016-11-02 09:23 | PN ---
Progress Note (short form) - Note Progress Note: Now POD#2 s/p left skin sparing mastectomy and SLNBx with immediate SCOTT flap recon. Overall, she is doing well and has no pain complaints this morning. Tmax 100.2 VSS I/O: 3009/3595 UO: 3400 NIKOLAS Drains: Breast:80 Abd:50/65 On exam, she is awake and alert and sitting comfortably in a chair eating breakfast Left breast soft, skin paddle warm with biphasic doppler Abdomen and soft with incision C/D/I Umbilucus viable A/P: 1) Q4 hour flap checks 2) May transfer to floor 3) Daily ASA 4) Hep Lock IVF 5) PO pain meds prn 6) Plan for D/C home tomorrow
--- NOTE | 2016-11-02 09:58 | PN ---
Progress Note (short form) - Note Progress Note: PULMONARY Pt seen and examined in the ICU. Denies shortness of breath or chest pain. No fevers or chills. Last Vital Signs Temp Pulse Resp BP Pulse Ox 98.8 F 80 16 103/69 95 11/02/16 08:10 11/02/16 09:44 11/02/16 09:44 11/02/16 09:44 11/02/16 09:00 Intake & Output 10/30/16 10/31/16 11/01/16 11/02/16 23:59 23:59 23:59 23:59 Intake Total 3790 3009 726 Output Total 1555 3595 890 Balance 2235 -586 -164 Weight 173 lb 181 lb 7 oz 175 lb 8 oz Gen: NAD at rest Heart: RRR Chest: +drains with serosanguinous fluid Lung: decreased breath sounds at the bases Abd: soft, nontender Ext: no edema CBC, BMP 11/02/16 05:20 11/02/16 05:20 Active Medications Acetaminophen (Tylenol -) 650 mg PO Q4H PRN PRN Reason: FEVER OR PAIN Aspirin (Asa -) 325 mg PO DAILY [facility] Diazepam (Valium -) 5 mg PO Q8H PRN PRN Reason: PAIN LEVEL 6-10 Diphenhydramine HCl (Benadryl Injection -) 25 mg IVPUSH Q4H PRN PRN Reason: FOR ITCHING Docusate Sodium (Colace -) 100 mg PO BID [facility] Enoxaparin Sodium (Lovenox -) 40 mg SQ DAILY [facility] Cefazolin Sodium (Ancef 1gm Ivpb (Pre-Docked)) 50 mls @ 100 mls/hr IVPB Q6H-IV RUSTAM Oxycodone HCl (Roxicodone -) 10 mg PO Q4H PRN PRN Reason: PAIN Oxycodone HCl (Roxicodone -) 5 mg PO Q4H PRN PRN Reason: PAIN Promethazine HCl (Phenergan Injection -) 12.5 mg IVPB Q6H PRN PRN Reason: NAUSEA AND/OR VOMITING Rosuvastatin Calcium (Crestor -) 20 mg PO HS RUSTAM A/P Left Breast DCIS s/p L mastectomy/sentinel node biopsy/SCOTT reconstruction - pain control - incentive spirometry - benadryl for pruritis - monitor drain output - monitor flaps - PO as tolerated - DVT prophylaxis - can monitor on floor
[2016-11-02] MEDS ORDERED: CEFAZOLIN (PRE-DOCKED) 50 ML IVPB ONE (10:14)
[2016-11-02] MEDS: ENOXAPARIN NA (PORCINE) 40 MG/0.4 ML DISP.SYRIN SQ SCH (10:24)
[2016-11-02] MEDS: DOCUSATE SODIUM 100 MG CAPSULE (FP) PO SCH ×2 (10:26→21:23)
[2016-11-02] MEDS: ASPIRIN 325 MG TABLET PO SCH (10:26)
[2016-11-02] MEDS ORDERED: ROSUVASTATIN CA 10 MG TABLET (FP) ONE (21:09)
[2016-11-02] MEDS ORDERED: ROSUVASTATIN CA 20 MG TABLET (FP) PO SCH (22:00)
[2016-11-03] MEDS: CEFAZOLIN (PRE-DOCKED) 50 ML IVPB SCH ×2 (02:38→10:18)
--- NOTE | 2016-11-03 08:32 | PN ---
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 - Current Medication List Current Medications: Active Medications Acetaminophen (Tylenol -) 650 mg PO Q4H PRN PRN Reason: FEVER OR PAIN Aspirin (Asa -) 325 mg PO DAILY [facility] Last Admin: 11/02/16 10:26 Dose: 325 mg Diazepam (Valium -) 5 mg PO Q8H PRN PRN Reason: PAIN LEVEL 6-10 Last Admin: 11/02/16 23:02 Dose: 5 mg Diphenhydramine HCl (Benadryl Injection -) 25 mg IVPUSH Q4H PRN PRN Reason: FOR ITCHING Docusate Sodium (Colace -) 100 mg PO BID [facility] Last Admin: 11/02/16 21:23 Dose: 100 mg Enoxaparin Sodium (Lovenox -) 40 mg SQ DAILY [facility] Last Admin: 11/02/16 10:24 Dose: 40 mg Cefazolin Sodium (Ancef 1gm Ivpb (Pre-Docked)) 50 mls @ 100 mls/hr IVPB Q6H-IV RUSTAM Last Admin: 11/03/16 02:38 Dose: 100 mls/hr Oxycodone HCl (Roxicodone -) 10 mg PO Q4H PRN PRN Reason: PAIN Oxycodone HCl (Roxicodone -) 5 mg PO Q4H PRN PRN Reason: PAIN Last Admin: 11/02/16 16:24 Dose: 5 mg Promethazine HCl (Phenergan Injection -) 12.5 mg IVPB Q6H PRN PRN Reason: NAUSEA AND/OR VOMITING Rosuvastatin Calcium (Crestor -) 20 mg PO HS [facility] Last Admin: 11/02/16 21:23 Dose: 20 mg - Objective Vital Signs: Vital Signs Temperature 99.3 F 11/03/16 07:00 Pulse Rate 82 11/03/16 07:00 Respiratory Rate 18 11/03/16 07:00 Blood Pressure 133/75 11/03/16 07:00 O2 Sat by Pulse Oximetry (%) 95 11/02/16 09:00 Constitutional: Yes: Well Nourished, No Distress, Calm Eyes: Yes: WNL HENT: Yes: Atraumatic, Normocephalic Neck: Yes: WNL Cardiovascular: Yes: Regular Rate and Rhythm Respiratory: Yes: Regular, CTA Bilaterally Gastrointestinal: Yes: Normal Bowel Sounds, Soft ...Rectal Exam: Yes: Deferred Genitourinary: Yes: WNL Breast(s): Yes: Other (Left breast flap warm and viable. Wounds clean, dry, and intact. Drains functioning well.) Musculoskeletal: Yes: WNL Extremities: Yes: WNL Wound/Incision: Yes: Clean/Dry, Well Approximated Neurological: Yes: Alert, Oriented ...Motor Strength: WNL Psychiatric: Yes: WNL Labs: CBC, BMP 11/02/16 05:20 11/02/16 05:20 Problem List - Problems (1) Ductal carcinoma of left breast Assessment/Plan: The patient is doing well afebrile/VSS POD#3 s/p left total mastectomy/SLN biopsy and SCOTT flap reconstruction. Wounds clean, dry, and intact. Flaps with good doppler pulses and with good color. OOB ambulating. 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 She is stable for discharge today. Home on percocet for pain and cefadroxil with valium for muscle spasm. F/u with Drs. Young and Tim in 1 week. Code(s): C50.912 - MALIGNANT NEOPLASM OF UNSPECIFIED SITE OF LEFT FEMALE BREAST
--- NOTE | 2016-11-03 08:38 | DS ---
Physical Examination Vital Signs: Vital Signs Temperature 99.3 F 11/03/16 07:00 Pulse Rate 82 11/03/16 07:00 Respiratory Rate 18 11/03/16 07:00 Blood Pressure 133/75 11/03/16 07:00 O2 Sat by Pulse Oximetry (%) 95 11/02/16 09:00 Constitutional: Yes: No Distress, Calm Eyes: Yes: WNL HENT: Yes: WNL Neck: Yes: WNL Cardiovascular: Yes: Regular Rate and Rhythm Respiratory: Yes: Regular, CTA Bilaterally Gastrointestinal: Yes: Normal Bowel Sounds, Soft ...Rectal Exam: Yes: Deferred Renal/: Yes: WNL Breast(s): Yes: Other (Left breast wound clean, dry, and intact. SCOTT flap warm and viable with good doppler pulse. Drains functioning well.) Musculoskeletal: Yes: WNL Extremities: Yes: WNL Wound/Incision: Yes: Clean/Dry, Well Approximated Neurological: Yes: Alert, Oriented Psychiatric: Yes: WNL Labs: CBC, BMP 11/02/16 05:20 11/02/16 05:20 Discharge Summary Reason For Visit: MALIGNANT NEOPLASM OF UNSP SITE OF UNSPECIFIED FEM Current Active Problems Ductal carcinoma of left breast (Acute) Procedures: Principal: Left breast Total mastectomy and sentinel lymph node biopsy with left SCOTT flap reconstruction Hospital Course: The patient was admitted post-op to the ICU for close SCOTT flap doppler monitoring. She did well with excellent dopplerable pulses and was stable for floor transfer POD#2. 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 Condition: Good - Instructions Diet, Activity, Other Instructions: Diet: Resume regular diet. Encourage low salt diet to help with swelling. Encourage fluid intake. Activity: Please take it easy for the first few days. Cannot shower while NIKOLAS drains are in place. Keep daily record. Please be careful moving your arms too much and using your pectoralis muscles ( chest) for the first few days as well. Walk slightly hunched over to avoid pressure on abdomen. Sleep with 2 pillows under knees and head of bed at 30 degree angle. No heavy activity or exercise Wound care: Please keep all dressings on as is. Please wear surgical bra at all times. Swelling in the abdomen is expected. Feeling of deep soreness is also to be expected. Medication: Valium, antibiotics, and pain medication. Appointment: Please call our office within one week to make an appointment to see Dr. Belcher/Aly ROMAN/Dr. Young. Call [phone]. If you have any questions or concerns, please call/return to office sooner. Referrals: Garrett Dumont MD [Staff Physician] - Gerardo Young MD [Staff Physician] - Disposition: HOME - Home Medications Comprehensive Discharge Medication List: Ambulatory Orders Cholecalciferol (Vitamin D3) [Vitamin D3] 5,000 unit PO HS 10/30/16 Rosuvastatin Calcium [Crestor] 20 mg PO HS 10/30/16 Cefadroxil 500 mg PO BID #20 capsule MDD 2 11/02/16 Diazepam [Valium] 5 mg PO Q8H PRN #15 tablet MDD 3 11/02/16 Oxycodone HCl/Acetaminophen [Percocet 5-325 mg Tablet] 1 tab PO Q4H PRN #30 tablet MDD 6 11/02/16
[2016-11-03] MEDS: DOCUSATE SODIUM 100 MG CAPSULE (FP) PO SCH (10:19)
[2016-11-03] MEDS: ASPIRIN 325 MG TABLET PO SCH (10:19)
[2016-11-03] MEDS: ENOXAPARIN NA (PORCINE) 40 MG/0.4 ML DISP.SYRIN SQ SCH (10:19)
[2016-11-03 16:21] VITALS: BP 112/67; PULSE 81; TEMP 99
--- NOTE | 2016-11-04 09:47 | OP ---
DATE OF OPERATION: 10/31/2016 PREOPERATIVE DIAGNOSES: 1. Left breast cancer. 2. Acquired absence of left breast and nipple. 3. Acute postoperative abdominal pain. POSTOPERATIVE DIAGNOSES: 1. Left breast cancer. 2. Acquired absence of left breast and nipple. 3. Acute postoperative abdominal pain. PROCEDURE: 1. Immediate left breast reconstruction with deep inferior epigastric production engineer track microvascular free flap. 2. Exploration of left internal mammary perforators with extensive adventitiectomies. 3. Bilateral ultrasound-guided transverse abdominis plain blocks. 4. Intraoperative angiography of left breast mastectomy flaps and lower abdominal free flap x2. 5. Processing and interpretation of left breast mastectomy and lower abdominal free flap intraoperative angiography images. 6. Reconstruction of anterior abdominal wall with mesh. ATTENDING SURGERY: Gerardo Young MD CO-SURGEON: Briseida Belcher MD [facility] NURSE: JESSIE Ahumada ANESTHESIA: General endotracheal. ESTIMATED BLOOD LOSS: 200 mL. SPECIMEN: As per surgical oncology. DRAINS: 1. A No. 15 round Tay drain x1 to left breast. 2. A No. 15 round Tay drain x2 to abdomen. COMPLICATIONS: None. DISPOSITION: Stable to recovery room, extubated. INDICATIONS: The patient is a 56-year-old female with a recent diagnosis of left breast cancer who has been recommended for a left non-nipple sparing mastectomy. She was evaluated preoperatively for immediate reconstruction, and she is most appropriately a candidate for autologous reconstruction using her lower abdominal tissue. The risks, benefits, and alternatives of the reconstruction were discussed with the patient in detail, and all questions were answered. The risks include , but are not limited to, bleeding, infection, pain, need for revision, partial or complete flap loss, damage to neighboring structures including nerves, arteries, veins, and tendons. The patient understands these risks and has elected to proceed with surgery. DESCRIPTION OF PROCEDURE: After proper identification and marking of the patient in the preoperative holding area, the patient was transported to the operating room and placed supine on the table while noninvasive anesthesia monitors were applied. Intravenous access was established. General anesthesia was administered, and the patient was intubated without difficulty. SCD boots were applied to bilateral extremities. Then 5000 units of subcutaneous heparin was then given. A Gibbs catheter was then placed. Intravenous antibiotics were then given. The patient 's bilateral breasts as well as abdomen and flanks were then prepped and draped in the usual sterile fashion. After a time-out was performed, Dr. Dumont from surgical oncology proceeded to perform a left skin-sparing mastectomy as well as a left sentinel lymph node biopsy. These procedures will be dictated separately. Concurrently, Dr. Belcher and myself began working independently as co- surgeons with separate instrument set ups. Attention was first turned towards the umbilicus where a No. 15 blade was used to circumferentially incise around it. A periumbilical dissection was then performed using a combination of electrocautery and Metzenbaum scissors with care taken to leave adequate periumbilical fat. This was carried down to the anterior abdominal wall. Next, the superior limb of the lower abdominal flap was incised with a No. 10 blade. This was carried down through the subcutaneous tissue with care taken to bevel slightly outwards. Once the anterior abdominal wall was reached, the superior abdominal skin flap was raised up to the xiphoid process in the midline and the costal margin bilaterally. The lower abdominal incision was then made. This was then carried down through Reji layer. Bilateral superficial inferior epigastric veins were noted to be small but more proximal dissections along them was performed. Once adequate length and caliber were achieved, they were ligated and divided. The remainder of the subcutaneous tissue was dissected down to the anterior abdominal wall. At this point, the handheld SPY system was brought into the field, and a 4-mL intravenous of indocyanine green was given. Lower abdominal flap angiography was then performed. The abdominal perforators were marked on the lower abdominal skin flap, and Doppler examination was then performed in order to confirm the location. Once this was completed, the lower abdominal flap was raised from a lateral to medial direction on the right side. There were noted to be small lateral row perforators, and these were ligated and divided. The medial row was then encountered, and a careful bipolar electrocautery dissection was performed around these. There were noted to be 3 perforators close to each other, and the decision was made to base the flap off of these 3 perforators. Therefore, the fascia was opened above the most superior production engineer track and the below the most inferior production engineer track. At this point, retrograde production engineer track dissections were performed along the course of all 3 perforators down to the rectus abdominis muscle fibers. The fibers were split longitudinally when possible. A small section of intervening muscle required division horizontally due to the layout of the perforators. The 3 perforators were dissected back to their takeoff from the inferior gastric pedicle. The superior continuation of the pedicle was then circumferentially dissected, ligated, and divided. At this point, a more proximal pedicle dissection was performed. Care was taken to identify, ligate, and divide side branches. Once adequate length and caliber had been achieved on the inferior epigastric pedicle, the artery as well as the accompanying veins were individually dissected. At this point, the remainder of the lower abdominal flap was raised off of the anterior rectus sheath such that the entire lower abdominal tissue was based solely on the 3 perforators from the deep inferior epigastric system on the right side. At this point, Doppler examination was performed in order to identify skin signals , and these were marked with 5-0 Prolene sutures. A skin panel was then designed around this. At this point, the SPY system was brought back onto the field, and another 4-mL injection of indocyanine green was given. Angiography of the lower abdominal flap as well as the left breast mastectomy skin flaps was then performed. Areas of hypoperfusion of the lower abdominal flap were marked. The mastectomy skin flaps were noted to be well perfused. Once the intraoperative angiography was completed, areas of hypoperfusion of the lower abdominal flap was excised and discarded. The border around the skin paddle was then incised partial thickness, and the remainder of the lower abdominal flap was deepithelialized. At this point, attention was turned towards the left breast pocket for exploration of recipient vessels. Self-retaining retractors were placed. The interspace between the 3rd and 4th rib was then identified. A perforating internal mammary artery with an accompanying vein was identified emanating through the pectoralis major muscle. A laterally based pectoralis major muscle flap was designed. This was incised along its medial edge and retracted laterally. At this point, an exploration of the internal mammary artery production engineer track as well as the accompanying perforating vein was performed. Using microvascular instruments and technique, the artery was dissected more proximally along its course down through the intercostal space Once adequate length and size were achieved, the clip at the distal end was released, and adequate inflow was confirmed. An extensive adventitiectomy was then performed along the artery in preparation for microvascular anastomosis. A single Ackland clamp was then placed at the base of the artery, and it was back flushed with heparinized saline. Next, the accompanying vein was dissected down through the intercostal muscles until adequate length and caliber had been achieved on the vein. The vein was noted to flush easily with heparinized saline, and an Ackland was placed proximally as well. At this point, the interspace between the 2nd and 3rd rib was identified, and a 2nd perforating vein was noted emanating from the space. Exploration of the 2nd internal mammary perforating vein was then performed until adequate length and caliber had been achieved. The vein was noted to flush well, and Ackland clamp was placed proximally on this as well. Lower abdominal flap was ligated and divided at the most proximal extent of the pedicle dissection. It was placed on a sterile scale and noted to weigh 643 g. The previously weighed mastectomy specimen was noted to weigh 583 g. The lower abdominal production engineer track flap was brought up to the left breast where it was temporarily stapled in place. The microvascular anastomoses were then performed. A 2-mm Synovis drop wire hanger was used to perform the 1st venous anastomosis. Release of all clamps revealed good backflow across the anastomosis. Next, the arterial anastomosis was performed using an 8-0 nylon suture in a simple interrupted fashion. Release of all clamps revealed good flow across this anastomosis as well as good bleeding from the flap skin edges and good egress of venous blood from the remaining flap vein. A 2nd venous anastomosis was then performed between the remaining flap vein, and the more superior internal mammary perforating vein. This was performed using a 2-mm Synovis drop wire hanger, and release of all clamps revealed good flow across this anastomosis. Next, the left breast pocket was irrigated, and hemostasis was ensured. A No. 15 round Tay drain was placed in the left breast pocket and brought out through a separate stab incision laterally and secured to the skin with a 3-0 nylon suture. Attention at this point was turned towards insetting of the microvascular free flap. The flap was carefully placed inside the skin pocket and positioned appropriately on the chest wall. The flap was then inset to the chest wall medially, inferiorly , and laterally. Once the flap was inset, Doppler examination revealed a strong biphasic signal on the skin paddle. Therefore, attention was turned towards closure of the left breast. A small rim of mastectomy flap skin was excised with the face lift scissors. The mastectomy flap skin edges were then inset to the skin paddle edges of the microvascular free flap using a 3-0 PDS in a buried deep dermal fashion followed by a 4-0 Monocryl in a running subcuticular fashion. Dermabond was applied to the incision line. The drain was hooked up to bulb suction and dressed with a Biopatch and Tegaderm. Concurrently, closure of the abdomen was performed. The fascial edges were reapproximated primarily. The fascial edges were reapproximated; however, there was noted to be a small fascial defect. The decision was made to reconstruct the anterior abdominal wall with a piece of mesh. Therefore, a piece of nonabsorbable mesh was opened and bathed in saline solution and then was brought up to the abdominal pocket. The abdominal wall reconstruction was then performed by insetting of the mesh to the surrounding fascial edges using a 0 Prolene suture in a simple running fashion. Once this was completed, the ultrasound system was brought onto the field. Under ultrasound-guided bilateral transverse abdominis plane blocks were performed. A local anesthetic solution consisting of 20 mL of Exparel mixed with 30 mL of 0.25% Marcaine and 50 mL of normal saline was used. A total of 30 mL was injected into each transverse abdominis plane. Once this was completed, 2 No. 15 round Tay drains were placed in the abdominal pocket and brought out through separate stab incisions laterally and secured to the skin with 3-0 nylon sutures. The superior abdominal skin flap was then advanced and closed in layers using a 2-0 Vicryl in an interrupted buried fashion in Reji layer followed by a 3-0 PDS in a buried deep dermal fashion and finally a 3-0 Monocryl in a running subcuticular fashion. The site of the umbilicus transposition had been marked, and a vertical ellipse was excised at the site of the umbilicus transposition. The umbilicus was then transposed and inset using a 3-0 PDS in a buried deep dermal fashion followed by a 4-0 plain gut in a simple running fashion. Dermabond was applied to the lower abdominal incision line. Xeroform was applied to the umbilicus followed by an eye patch and a Tegaderm. The patient at this point was slowly awakened and was extubated without incident and transported to recovery room in stable condition. Jona [id number] MTDD
--- NOTE | 2016-11-04 15:16 | PATH ---
Surgical Pathology Report Patient Name: XIOMY LOPEZ [facility]. Rec. #: [id number] /Age/Gender: 1960 (Age: 56) / F Account: [id number] Location: [facility] MED/SURG Taken: 10/31/2016 Received: 10/31/2016 Reported: 11/04/2016 Physicians: Garrett Dumont M.D. Specimen(s) Received A: SENTINEL LYMPH NODE #1 B: SENTINEL LYMPH NODE #2 C: LEFT BREAST D: ANTERIOR LATERAL MARGIN LEFT BREAST E: ANTERIOR MEDIAL MARGIN LEFT BREAST Clinical History Left breast cancer Intraoperative Consult Diagnosis A. Left axillary sentinel lymph node #1, touch prep and frozen section: One lymph node, no carcinoma identified. B. Left axillary sentinel lymph node #2, touch prep and frozen section: One lymph node, no carcinoma identified. Dr. Travis, 10/31/16. Final Diagnosis A. SENTINEL LYMPH NODE #1, LEFT AXILLARY, BIOPSY: ONE LYMPH NODE NEGATIVE FOR METASTATIC CARCINOMA BY H&E STAIN (0/1). B. SENTINEL LYMPH NODE #2, LEFT AXILLARY, BIOPSY: ONE LYMPH NODE NEGATIVE FOR METASTATIC CARCINOMA BY H&E STAIN (0/1). C. 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 DCIS IS INTERMEDIATE TO HIGH NUCLEAR GRADE, SOLID CRIBRIFORM AND PAPILLARY TYPES, WITH EXTENSIVE CENTRAL COMEDO-TYPE NECROSIS, CALCIFICATIONS AND LOBULAR EXTENSIONS WITH PERIDUCTAL FIBROSIS. DCIS IS EXTENSIVE, PRESENT IN THE LOWER INNER QUADRANT AND RETROAREOLAR AREA WITH FOCAL EXTENSIONS TO THE NIPPLE DUCT. LOBULAR CARCINOMA IN SITU (LCIS), CLASSICAL TYPE WITH ASSOCIATED FOCAL MICROCALCIFICATIONS. SURGICAL RESECTION MARGINS: RESECTION MARGINS ARE NEGATIVE FOR INVASIVE CARCINOMA (FOCUS OF MICROINVASION IS 2.0 MM FROM THE ANTERIOR ASPECT OF THIS SPECIMEN AND >1.0 CM FROM THE DEEP MARGIN); DCIS ABUTS ANTERIOR ASPECT OF THIS SPECIMEN (ALSO REFER TO PARTS C AND D) AND DCIS IS FOCALLY <1.0 MM FROM THE DEEP MARGIN. NIPPLE: NOT INVOLVED BY DCIS. SKIN: NOT INVOLVED BY CARCINOMA. LYMPHOVASCULAR INVASION: NOT IDENTIFIED. SURROUNDING BREAST TISSUE: FIBROCYSTIC CHANGE WITH USUAL DUCTAL HYPERPLASIA, COLUMNAR CELL CHANGE, ADENOSIS, DUCT DILATATION, CYST FORMATION AND STROMAL FIBROSIS WITH ASSOCIATED FOCAL MICROCALCIFICATIONS. PATHOLOGIC STAGING: pT1mi pN0(sn) (ALSO REFER TO CHECKLIST BELOW). RECEPTOR STATUS: REFER TO CHECKLIST BELOW. Comment: Immunohistochemical stains for p63 and SMM-HC performed and interpreted at [facility] on block C7 highlight a focal loss of myoepithelial cells supporting microinvasion. Immunohistochemical stain for E-Cadherin performed and interpreted at [facility] on blocks C7 and C14 show areas that are positive and negative for E-Cadherin supports in both DCIS and LCIS. D. BREAST, LEFT, ANTERIOR LATERAL MARGIN, EXCISION: BENIGN FATTY BREAST TISSUE. NEGATIVE FOR INVASIVE CARCINOMA OR DCIS. E. BREAST, LEFT, ANTERIOR MEDIAL MARGIN, EXCISION: BENIGN FATTY BREAST TISSUE. NEGATIVE FOR INVASIVE CARCINOMA OR DCIS. Comments Breast Invasive Carcinoma: Surgical Pathology Cancer Case Summary Based on AJCC/UICC TNM, 7th edition Procedure _x_ Total mastectomy (including nipple and skin) Lymph Node Sampling _x_ Corn lymph nodes Specimen Laterality _x_ Left Tumor Size: Size of Largest Invasive Carcinoma _x_ Microinvasion only (= 1 mm) Tumor Focality _x_ Single focus of invasive carcinoma Macroscopic and Microscopic Extent of Tumor Skin _x_ Invasive carcinoma does not invade into the dermis or epidermis Nipple _x_ DCIS does not involve the nipple epidermis Skeletal Muscle _x_ No skeletal muscle present Ductal Carcinoma In Situ (DCIS) _x_ DCIS is present _x_ as a major component (>25% of tumor, extensive intraductal component) Lobular carcinoma in situ (LCIS) _x_ LCIS is present, classical type Histologic Type of Invasive Carcinoma: _x_ Micro-invasive carcinoma Histologic Grade: (Senait Histologic Score) Tubular Differentiation _x_ Only microinvasion present (not graded) Nuclear Pleomorphism _x_ Only microinvasion present (not graded) Mitotic Rate _x_ Only microinvasion present (not graded) Overall Grade _x_ Only microinvasion present (not graded) Margins _x_ Margins uninvolved by invasive carcinoma Distance from closest margin: >1 cm Specify margin: cannot be determined (additional anterior margins taken) _x_ Margin close to (< 1 mm) DCIS: DCIS is focally <1.0 mm from the deep margin Lymph-Vascular Invasion _x_ Not identified Lymph Nodes Total number of lymph nodes examined (sentinel and nonsentinel): 2 Number of sentinel lymph nodes examined: 2 Number of lymph nodes with macrometastases (> 2 mm): 0 Number of lymph nodes with micrometastases (>0.2 mm to 2 mm and/or >200cells):0 Number of lymph nodes with isolated tumor cells (=0.2 mm and =200 cells): 0 Size of largest metastatic deposit (if present): n/a Extranodal Extension _x_ Not applicable Pathologic Staging (pTNM) Primary Tumor (Invasive Carcinoma): pT1mi Regional Lymph Nodes (pN): pN0(sn) Distant Metastasis (pM): not applicable Biomarker Studies Microinvasive carcinoma: ER and AR studies were attempted on the area of microinvasion (block C7) at [facility]; however tumor cells are no longer identifiable on the ER and OR stained sections. Her2 IHC will also be attempted; results will be reported separately in an addendum. DCIS: ER and AR performed and interpreted at [facility] on block C7: ER (clone [id number] mouse monoclonal antibody by [employer]): ~70% nuclear staining with strong to moderate intensity (Positive). AR (clone16 mouse monoclonal antibody by [employer]): ~25% nuclear staining with moderate to strong intensity (Positive/). Positive and negative controls (internal if applicable) show appropriate results. Formalin fixation and cold ischemic times are within current ASCO/CAP recommendations for ER, AR and Her2 testing. . Electronically Signed Bhavesh Travis M.D. Addendum Reported: 11/05/2016 Addendum Diagnosis Her2 IHC was attempted on the focus of microinvasion (block C7) at [place], [place] ([id number]); the area of microinvasion was no longer present on the section stained with Her2. Bhavesh Travis M.D. Gross Description A. Received fresh, labeled "left axillary sentinel lymph node #1" is a 1.6 x 1.0 x 0.4 cm carpenter rubbery lymph node. The specimen is bisected, one touch prep and one frozen section are performed. The frozen section residue is submitted entirely in one cassette. B. Received fresh, labeled "left axillary sentinel lymph node #2" is a 0.9 x 0.6 x 0.3 cm carpenter rubbery lymph node. The specimen is bisected, one touch prep and one frozen section are performed. The frozen section residue is submitted entirely in one cassette. C. Received fresh, labeled "left breast" is a 600 gram, 20.0 x 17.5 x 5.0 cm left mastectomy specimen with a short suture marking the superior aspect and a long suture marking the lateral aspect of the specimen, per the surgeon. The anterior surface displays a 4.5 x 4.0 cm carpenter, ovoid portion of skin with a 1.4 cm in diameter nipple. The deep margin is inked black and the anterior soft tissue margin is inked blue. The specimen is serially sectioned from medial to lateral. Sectioning reveals a focus of hemorrhage in the lower inner quadrant (LIQ), possibly consistent with a previous biopsy site. The previous biopsy site is at 0.3 cm from anterior soft tissue margin. The site is surrounded by abundant dense, white, focally firm fibrous tissue. No definitive mass is identified. The remaining breast parenchyma displays abundant dense, white fibrocystic parenchyma. Tool Profiling Machine Set Up Operator sections are submitted in 24 cassettes as follows: 1-serially sectioned nipple; 2-subareolar shave; 3-4-LIQ previous biopsy site (each with anterior soft tissue margin); 6-60-wnpglucyxg LIQ tissue surrounding biopsy site; 13-14-upper inner quadrant; 15-17-upper outer quadrant; 18-19-lower outer quadrant; 96-13-pwmoueyldgcp tissue; 22-anterior soft tissue margin; 23-skin; 24-deep margin. Time to formalin fixation: 15 minutes Total formalin fixation time: Approximately 8 hours. D. Received in formalin labeled "left breast anterior lateral margin" is a 9.0 x 3.5 x 1.7 cm irregular portion of fibroadipose tissue with a suture marking the biopsy cavity side, per the surgeon. The new margin is inked blue and the specimen is serially sectioned. Sectioning reveals unremarkable fibroadipose tissue. Tool Profiling Machine Set Up Operator sections are submitted in 9 cassettes. E. Received in formalin labeled "anterior medial margin left breast" is a 6.5 x 2.5 x 0.7 cm irregular portion of fibroadipose tissue with a suture marking the biopsy cavity side, per the surgeon. The new margin is inked blue and the specimen is serially sectioned. Sectioning reveals unremarkable fibroadipose tissue. Tool Profiling Machine Set Up Operator sections are submitted in 6 cassettes. 10/31/2016 saudi10/31/2016
== END 2016-11-03 12:33 | disposition home or self-care (01) | DRG 581 ==
LOC: JSAMEDAYSX 06:09 → EDSTATUS 08:00 → JICU 19:57 → J6S 11-02 11:59 → J7W 11-02 22:54
PROVIDERS: ADMIT Surgery Surgical Oncology; ATTEND Surgery Surgical Oncology
PROC: 0WUF0JZ Supplement Abdominal Wall with Synthetic Substitute, Open Approach (ICD-10-PCS; 2016-10-31)
PROC: B40BYZZ Plain Radiography of Other Intra-Abdominal Arteries using Other Contrast (ICD-10-PCS; 2016-10-31)
PROC: 0HTU0ZZ Resection of Left Breast, Open Approach (ICD-10-PCS; principal; 2016-10-31 08:00)
PROC: 07B60ZX Excision of Left Axillary Lymphatic, Open Approach, Diagnostic (ICD-10-PCS; 2016-10-31 08:00)
PROC: 0HRU077 Replacement of Left Breast using Deep Inferior Epigastric Artery Perforator Flap, Open Approach (ICD-10-PCS; 2016-10-31 08:00)
DX: C50.912 Malignant neoplasm of unspecified site of left female breast (principal); E78.5 Hyperlipidemia, unspecified; E55.9 Vitamin D deficiency, unspecified; G89.18 Other acute postprocedural pain; R10.9 Unspecified abdominal pain; Z17.0 Estrogen receptor positive status [ER+]
CPT/HCPCS: 36415; 78195-TC; 80053; 84703; 85025; 85027; 88307-TC; 88331-TC; 88341-TC; 94760; A9541; J1644

== ENCOUNTER 2017-11-19 06:08 | Day surgery (SDC) | payer BC ==
[2017-11-07 16:28] VITALS: BMI 26.2
[2017-11-19] MEDS ORDERED: GENTAMICIN SO4 80 MG/2 ML VIAL ONE (07:22)
[2017-11-19] MEDS ORDERED: ceFAZolin SODIUM 1 GM VIAL ONE ×3 (07:22→08:06)
[2017-11-19] MEDS ORDERED: EPINEPHrine 1:1,000 1 MG/1 ML - 30ML VIAL (INJECTION) ONE (07:23)
[2017-11-19] MEDS ORDERED: BUPIVACAINE HCL/PF 0.5% (5MG/ML) 10 ML VIAL ONE (07:23)
[2017-11-19] MEDS ORDERED: LIDOCAINE 1%/EPI 1:100000 (20 ML MULTI DOSE VIAL) ONE (07:23)
[2017-11-19] MEDS ORDERED: LIDOCAINE HCL 1%, 10 MG/ML (20ML VIAL) ONE ×2 (07:23→07:37)
[2017-11-19] MEDS ORDERED: PROPOFOL 20 ML ONE ×3 (07:41)
[2017-11-19] MEDS ORDERED: SUCCINYLCHOLINE CHLORIDE 200 MG/10 ML VIAL ONE (07:41)
[2017-11-19] MEDS ORDERED: fentaNYL CITRATE 250 MCG/5 ML VIAL ONE (07:41)
[2017-11-19] MEDS ORDERED: MIDAZOLAM HCL 2 MG/2 ML SINGLE DOSE VIAL ONE (07:41)
[2017-11-19] MEDS ORDERED: ONDANSETRON 4 MG/2 ML VIAL ONE (07:46)
[2017-11-19] MEDS ORDERED: DEXAMETHASONE SOD PHOSPHATE 4 MG/1 ML VIAL ONE (07:46)
[2017-11-19] MEDS ORDERED: LIDOCAINE HCL 2% JELLY (5 ML/TUBE) ONE (07:46)
[2017-11-19] MEDS ORDERED: HALOPERIDOL LACTATE 5 MG/ML ONE (07:48)
--- NOTE | 2017-11-19 10:18 | OP ---
Operative Note - Note: Operative Date: 11/19/17 Pre-Operative Diagnosis: breast cancer Operation: Subcutaneous tissue transfer to Right breast, revision Left breast, and Left nipple and areola reconstruction Post-Operative Diagnosis: Same as Pre-op Surgeon: Omkar Belcher Battery Tester: Mark Field Anesthesiologist/STRUCTURAL STEEL WORKER: Cory Mcnamara Anesthesia: General Estimated Blood Loss (mls): 20 Fluid Volume Replaced (mls): 700 Operative Report Dictated: Yes
--- NOTE | 2017-11-19 10:20 | SURG ---
Surgery Tire Shop Manager Note Tire Shop Manager: Mark Field PA-C Date of Service: 11/19/17 Diagnosis: Breast cancer Procedure: Subcutaneous tissue transfer to Right breast, Revision of Left breast, and Left nipple and areola reconstruction I was present for the entirety of the operative procedure. For further detail, please refer to operative report.
[2017-11-19] MEDS ORDERED: PROMETHAZINE HCL 25 MG/1 ML VIAL IVPUSH PRN (10:36)
[2017-11-19] MEDS ORDERED: oxyCODONE HCL 5 MG TABLET PO PRN ×2 (10:36)
[2017-11-19] MEDS ORDERED: ONDANSETRON 4 MG/2 ML VIAL IVPUSH PRN (10:36)
[2017-11-19 11:08] VITALS: TEMP 97.4
[2017-11-19 12:02] VITALS: BP 120/72; PULSE 64
--- NOTE | 2017-11-20 09:54 | OP ---
DATE OF OPERATION: 11/19/2017 SURGEON: Anai Belcher MD ROOFER METAL SURGEON: JESSIE Amaral PREOPERATIVE DIAGNOSES: 1. Bilateral acquired chest wall deformity status post mastectomy and reconstruction. 2. Asymmetry of reconstructed chest wall. 3. Absent nipple-areolar complex after microvascular free flap reconstruction. POSTOPERATIVE DIAGNOSES: 1. Bilateral acquired chest wall deformity status post mastectomy and reconstruction. 2. Asymmetry of reconstructed chest wall. 3. Absent nipple-areolar complex after microvascular free flap reconstruction. OPERATIVE PROCEDURE: 1. Right breast reconstruction utilizing other technique. 2. Left breast reconstruction utilizing other technique. 3. Right breast reduction mammoplasty. 4. Left breast nipple-areolar reconstruction. OPERATIVE INDICATION: Patient is a 57-year-old white female who is brought to the operating room for the above procedures. The risks and benefits of surgical versus nonsurgical alternatives as well as material complications were described to the patient on multiple occasions preoperatively and she required these procedures for breast reconstruction and symmetry of the reconstructed chest wall. OPERATIVE PROCEDURE IN DETAIL: Patient was taken to the operating room and after induction of general anesthesia in the supine position both arms were extended and padded. Venodyne boots were placed and the entire chest wall, abdomen, flanks and body were prepped with ChloraPrep solution over their entire extent. The markings for the nipple-areolar complex and outline of the reconstructive procedure had been done in the standing position preoperatively in the holding area and these were re-outlined, remarked, remeasured and confirmed before proceeding. After prepping and draping and timeout in the usual fashion attention was turned to the mastectomy scars. The left breast mastectomy scar and circumareolar flap for nipple-areolar reconstruction were injected with 1% local lidocaine anesthesia as was the right breast for reduction mammoplasty incisions. After allowing topical anesthesia and hemostasis an injection was also carried out into the lower flank area in order to harvest the subcutaneous tissue. The long lateral scar from the previous microsurgical flap was also utilized. At this point attention was turned to the right breast. A circumareolar incision was made with a No. 42 nipple-areolar cutter around the right breast for a reduction mammoplasty and a circumvertical reduction was carried out. Deepithelialization of the tissue was carried out around the nipple- areolar complex and sent for pathologic diagnosis and blocks of tissue which were attached to the skin were also removed in order to reduce the overall volume of the breast to match the opposite side. At this point hemostasis was meticulously obtained throughout and attention was turned to the abdomen. At this point incisions were made down through skin, through the subcutaneous tissue, down to the deep tissue overlying the rectus muscle, lateral oblique fascia and deep tissue over the abdominal wall and flanks. Tissue was then harvested in the usual fashion for reconstruction with other technique, prepared and transferred to the back table for transfer to the breast. At this point incisions were made down through the skin, through subcutaneous tissue for the nipple-areolar complex on the left. A double-apposing tab nipple-areolar reconstruction was carried out by incising the flaps, carrying them down into the subcutaneous tissue, rotating and advancing the flap into a nipple prominence. These were sutured together using 3-0 PDS suture on the deep tissue in multiple-layer fashion and 5-0 plain catgut sutures on the skin. The tissue which had been harvested was then transferred to the left breast in the superior, medial, central and inferior poles of the left breast and tissue from the lateral portion of the left breast was removed in order to contour the breast into a better position. At this point copious irrigation of the wounds was performed. Attention was turned back to the right breast. The tissues were advanced and closed after reduction of the right breast using 3 -0 Monocryl on the deep tissue and dermis and then separate layers of 4-0 Biosyn and running subcuticular sutures of V-Loc 3-0 were carried out. Good shape and contour were seen on both breasts. The patient was placed into the sitting position. All wounds were closed with interrupted and running sutures circumferentially and on the donor sites. Good shape and contour were seen. Dermabond, Steri-Strips and a compressive dressing were placed and a Surgi-Bra. She tolerated her procedure well. She was awakened and transferred to the recovery room in satisfactory condition. ANAI BELCHER M.D. [id number] MTDD
--- NOTE | 2017-11-21 15:02 | PATH ---
Surgical Pathology Report Patient Name: XIOMY LOPEZ [facility]. Rec. #: [id number] /Age/Gender: 1960 (Age: 57) / F Account: [id number] Location: [facility] Taken: 11/19/2017 Received: 11/19/2017 Reported: 11/21/2017 Physicians: Omkar Belcher Specimen(s) Received RIGHT BREAST TISSUE Clinical History History of breast cancer, rule out tumor Final Diagnosis BREAST TISSUE, RIGHT, EXCISION: BENIGN BREAST TISSUE. SKIN WITH NO PATHOLOGIC FINDINGS. Electronically Signed Rylie Martin M.D. Gross Description Received in formalin labeled "right breast tissue," is an 8 g aggregate of 2 carpenter, unoriented portions of skin with minimal underlying soft tissue. The specimens measure 4.0 x 0.4 x 0.2 cm and 4.2 x 4.0 x 0.6 cm. The epidermal surfaces are unremarkable. Sectioning reveals unremarkable underlying soft tissue. Wraparound Facilitator sections are submitted in one cassette. 11/20/2017 pema11/20/2017
== END 2017-11-19 12:00 | disposition home or self-care (01) ==
LOC: FASU 06:08
PROVIDERS: ATTEND Plastic Surgery
PROC: 0HUX07Z Supplement Left Nipple with Autologous Tissue Substitute, Open Approach (ICD-10-PCS; 2017-11-19)
PROC: 0HRV07Z Replacement of Bilateral Breast with Autologous Tissue Substitute, Open Approach (ICD-10-PCS; principal; 2017-11-19 08:00)
PROC: 0HBT0ZZ Excision of Right Breast, Open Approach (ICD-10-PCS; 2017-11-19 08:00)
DX: M95.4 Acquired deformity of chest and rib (principal); Z90.13 Acquired absence of bilateral breasts and nipples; N65.1 Disproportion of reconstructed breast
CPT/HCPCS: 94760